=== PATIENT | male | born 1990 | race Caucasian/White ===

== ENCOUNTER 2020-02-09 18:51 | Emergency (ER) | payer SELFPAY ==
[~2020-02-09] VITALS: Ht 185.4 cm; Wt 66.2 kg
[2020-02-09] MEDS ORDERED: KETOROLAC 30 MG/1 ML IVPush ONE (20:00)
[2020-02-09] MEDS ORDERED: ONDANSETRON 2MG/ML, 2ML IVPush ONE (20:00)
[2020-02-09] MEDS ORDERED: ONDANSETRON 2MG/ML, 2ML ONE (20:13)
[2020-02-09] MEDS ORDERED: KETOROLAC 30 MG/1 ML ONE (20:13)
[2020-02-09 20:17] LABS: MICROSCOPIC INDICATED
--- NOTE | 2020-02-09 20:34 | NUR ---
PT TO CT
[2020-02-09 20:38] LABS: BASOPHILS % (AUTO) 0 % (0-1); EOSINOPHILS % (AUTO) 0 % (1-7); LYMPHOCYTES % (AUTO) 11 % (22-44); MEAN CORPUSCULAR HEMOGLOBIN 32.9 pg (27.5-34.5); MEAN CORPUSCULAR HGB CONC 36.7 g/dL (33.2-36.2); MONOCYTES % (AUTO) 4 % (2-9); NEUTROPHILS % (AUTO) 86 % (42-75); PLATELET COUNT 290 x10^3/uL (130-400); RED BLOOD COUNT 4.35 x10^6/uL (4.38-5.82)
--- NOTE | 2020-02-09 20:40 | NUR ---
PT RETURNED TO ROOM FROM CT
[2020-02-09 20:46] LABS: ALANINE AMINOTRANSFERASE 18 U/L (12-78); ALBUMIN 4.5 g/dL (3.4-5.0); ANION GAP 6 mmol/L (5-15); CALCIUM 9.3 mg/dL (8.5-10.1); CHLORIDE 106 mmol/L (98-107); CREATININE 1.27 mg/dL (0.7-1.3)
[2020-02-09 20:49] LABS: ALKALINE PHOSPHATASE 46 U/L (45-117); TOTAL PROTEIN 7.6 g/dL (6.4-8.2)
--- NOTE | 2020-02-09 21:10 | NUR ---
PT SITTING UPRIGHT ON GURNEY RESTING COMFORTABLY WITH EYES CLOSED. SIGNIFICANT OTHER AT THE BEDSIDE. 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 NO ADDITIONAL NEEDS AT THIS TIME. CALL LIGHT AND BELONGINGS WITHIN REACH.
--- NOTE | 2020-02-09 21:14 | NUR ---
Pt sleeping o2 down to 86%, stimulated pt, back up to 95%.
[2020-02-09 21:18] LABS: MD SCAN
--- NOTE | 2020-02-09 21:25 | NUR ---
ERP AT BEDSIDE
[2020-02-09 21:34] VITALS: BP 107/59
--- NOTE | 2020-02-09 21:46 | NUR ---
Patient given discharge instructions and they have confirmed that they understand the instructions. Patient ambulatory with steady gait.
== END 2020-02-09 21:47 | disposition home or self-care (01) ==
LOC: ED 19:21
DX: N13.2 Hydronephrosis with renal and ureteral calculous obstruction (principal); R31.9 Hematuria, unspecified; R10.31 Right lower quadrant pain; R10.2 Pelvic and perineal pain; R11.0 Nausea
CPT/HCPCS: 36415; 74176; 80053; 81001; 83690; 85025; 87086; 96374; 96375; 99284; J1885; J2405